=== PATIENT | female | born 1995 | race Caucasian/White ===

== ENCOUNTER → 2017-05-18 | Outpatient (CLI) | payer OTHER ==
[~2017-05-18] MED LIST: AMOX500C PO; HYDR-3713 PO; IBUP-1022 PO
--- NOTE | 2017-05-18 08:58 | REP ---
RIGHT UPPER QUADRANT ULTRASOUND: Real-time sonographic evaluation of the right upper quadrant performed. Gallbladder demonstrates no evidence of intraluminal sludge or calculi, wall thickening, or pericholecystic fluid. There is no intrahepatic or extrahepatic biliary dilatation, common bile duct measuring 5 mm in diameter. Liver and pancreas demonstrate homogenous echotexture with no gross mass. Right kidney demonstrates no hydronephrosis or nephrolithiasis with normal size at 10.5 cm in length. Visualized abdominal aorta is normal in caliber. IMPRESSION: Negative right upper quadrant ultrasound. Signed by Viet Guzmán MD 05/18/2017 09:03 A
== END ==
LOC: M RAD 08:17
PROVIDERS: ATTEND Family Medicine
DX: R10.11 Right upper quadrant pain (principal)

== ENCOUNTER → 2020-11-04 | Outpatient (REF) | payer OTHER | LOC: M LAB REF 16:56 | PROVIDERS: ATTEND Advanced Practice Midwife | DX: N39.0 Urinary tract infection, site not specified (principal) ==

== ENCOUNTER → 2020-11-12 | Outpatient (CLI) | payer OTHER ==
[2020-11-12 13:16] LABS: HEMATOCRIT 30.8 % (36.0-47.0); HEMOGLOBIN 10.3 g/dl (12.0-15.5); MEAN CORPUSCULAR HEMOGLOBIN 30.7 pg (27.0-33.0); MEAN CORPUSCULAR HGB CONC 33.4 g/dl (32.0-36.5); MEAN CORPUSCULAR VOLUME 91.7 fl (80.0-96.0); PLATELET COUNT, AUTOMATED 290 10^3/uL (150-450); RED BLOOD COUNT 3.36 10^6/uL (4.00-5.40); WHITE BLOOD COUNT 12.8 10^3/uL (4.0-10.0)
== END ==
LOC: M LAB 11:32
PROVIDERS: ATTEND Advanced Practice Midwife
DX: Z34.82 Encounter for supervision of other normal pregnancy, second trimester (principal); Z3A.00 Weeks of gestation of pregnancy not specified

== ENCOUNTER → 2020-11-18 | Outpatient (CLI) | payer OTHER | LOC: M LAB 07:07 | PROVIDERS: ATTEND Obstetrics & Gynecology | DX: Z34.82 Encounter for supervision of other normal pregnancy, second trimester (principal); R73.02 Impaired glucose tolerance (oral) ==

== ENCOUNTER → 2021-01-04 | Outpatient (REF) | payer OTHER | LOC: M LAB REF 17:43 | PROVIDERS: ATTEND Advanced Practice Midwife | DX: Z34.03 Encounter for supervision of normal first pregnancy, third trimester (principal) ==

== ENCOUNTER 2021-02-01 13:42 | Inpatient (IN) | payer OTHER ==
[~2021-02-01] VITALS: Ht 157.5 cm; Wt 77.4 kg
[2021-02-01] VITALS (27 sets, daily range): BP systolic 131–194; BP diastolic 74–119
[2021-02-01] MEDS ORDERED: MULTTAB20 PO (14:00)
[2021-02-01 15:17] LABS: HEMATOCRIT 31.5 % (36.0-47.0); HEMOGLOBIN 10.3 g/dl (12.0-15.5); MEAN CORPUSCULAR HGB CONC 32.7 g/dl (32.0-36.5); MEAN CORPUSCULAR VOLUME 88.7 fl (80.0-96.0); PLATELET COUNT, AUTOMATED 256 10^3/uL (150-450); RED BLOOD COUNT 3.55 10^6/uL (4.00-5.40); WHITE BLOOD COUNT 12.1 10^3/uL (4.0-10.0)
[2021-02-01 15:41] LABS: ALT/SGPT 19 U/L (12-78); BILIRUBIN,TOTAL 0.1 MG/DL (0.2-1.0); CREATININE FOR GFR 0.54 MG/DL (0.55-1.30); GLOMERULAR FILTRATION RATE > 60.0 (>60); LDH LACTATE DEHYDROGENASE 187 U/L (84-246); URIC ACID 4.8 MG/DL (2.6-6.0)
[2021-02-01 16:04] LABS: CREATININE,RANDOM URINE 22.1 MG/DL; TOTAL PROTEIN,RANDOM URINE 20.7 MG/DL (0.0-12.0)
--- NOTE | 2021-02-01 16:22 | HPEPDOC ---
Obstetrical History & Physical General Date of Admission Feb 01, 2021 at 14:29 History of Present Illness 26 yo G1 at 39 5/7 weeks by 11 week ultrasound (EDC=02/03/2021) presents from the office at [facility] with elevated blood pressures. She denies HUDDLESTON's or blurred vision. No pain. Information Provided By: Patient Age: 26 : 1 Term: 0 Pre-term: 0 Abortions: 0 Care Care: Good Care Dating Final EDC: Feb 03, 2021 Final EDC by: 1st trimester (US) Past Medical History Past Obstetrical History : Past Obstetrical History: Primgravida Past Medical History Medical History med hx: scoliosis surgical hx: tonsillectomy and adenoidectomy, wisdom tooth extraction Family History Significant Family History: No pertinent family hx Social History Marital Status: Family situation: Spouse/partner home Psychosocial History: No pertinent psych hx * Smoker: non-smoker Allergies Coded Allergies: No Known Allergies (Unverified , 09/22/16) Medications Scheduled Amoxicillin (Amoxicillin) 500 Mg Cap, 500 MG PO TID No122/Iron/Folic Acid ( Multi Tablet) 1 Each Tablet, 1 TAB PO DAILY Scheduled PRN Hydrocodone/Acetaminophen (Hydrocodone-Acetamin 5-325 mg) 1 Tab Tab, 1 TAB PO QIDP PRN for PAIN Ibuprofen (Ibuprofen) 600 Mg Tab, 600 MG PO QIDP PRN for PAIN Physical Examination Physical Examination GENERAL: Alert and oriented times three. BREAST: . ABDOMEN: Gravid and non-tender to touch. FETUS: Is vertex (VTX) by sterile vaginal examination (SVE), fetus is vertex (VTX) by Lalo. HEART RATE: Regular rate and rhythm. LUNGS: Clear to auscultation (CTA). EXTREMITIES: No edema. No clonus. Deep tendon reflexes (DTRs) + . Vital Signs/I&O Vital Signs Date Time Temp Pulse Resp B/P (MAP) Pulse Ox O2 Delivery O2 Flow Rate FiO2 02/01/21 15:29 87 151/105 (120) 02/01/21 13:58 98.4 18 Laboratory Data 24H LABS Laboratory Tests 2 02/01/21 14:43: Serology Scanned Report Hepatitis B Testing 02/01/21 14:54: Nucleated Red Blood Cells % (auto) 0.0, Urine Random Creatinine 22.1, Urine Random Total Protein 20.7H, Glomerular Filtration Rate > 60.0, Uric Acid 4.8, Total Bilirubin 0.1L, Aspartate Amino Transf (AST/SGOT) 19, Alanine Aminotransferase (ALT/SGPT) 19, Lactate Dehydrogenase 187, Syphilis Serology NONREACTIVE CBC/BMP Laboratory Tests 02/01/21 14:54 Pertinent Laboratoy Data Blood Type: O- Group B Streptococcus: Negative Vaginal Examination Dilation: None Effacement: 50% Station: -2 Cervical Consistency: Soft Cervical Position: Posterior Presentation: Cephalic presentation Assessment Variability: Moderate Accelerations: Positive Decelerations: None Tocometer Contractions: No Assessment/Plan Assessment Pt is a 26-year-old (G)1 para (P)0 at 39+5 weeks by 11-week ultrasound presents with preeclampsia. Plan Admit and orient. [employer] Supervisor and consent. Diet: regular. Group B Streptococcus (GBS) negative. Labs and intravenous (IV) per unit protocol. Manage blood pressures as indicated to keep in reasonable range discussed diagnosis of preeclampsia CHRISTOPH BOWEN MD Feb 01, 2021 16:22
[2021-02-01] MEDS ORDERED: LABETALOL 100MG/20ML VIAL IV STA ×2 (16:25→17:34)
[2021-02-01] MEDS: miSOPROStol 50MCG 1/2 TABLET SL SCH ×2 (16:34→20:31)
[2021-02-01] MEDS ORDERED: ACETAMINOPHEN 500 MG TAB PO ONE (22:30)
[2021-02-01] MEDS ORDERED: BUTORPHANOL 2 MG/ML INJ (J0595) IV ONE (23:00)
[2021-02-01] MEDS ORDERED: PROMETHAZINE INJ 25 MG/ML VIAL (J2550) IV ONE (23:00)
[2021-02-02] VITALS (23 sets, daily range): BP systolic 130–196; BP diastolic 75–109
[2021-02-02] MEDS: miSOPROStol 50MCG 1/2 TABLET SL SCH (00:31)
[2021-02-02] MEDS ORDERED: LR 1,000 ML IV ONE (01:55)
[2021-02-02] MEDS ORDERED: TERBUTALINE SULFATE 1 MG/ML VIAL (J3105) SC ONE (02:30)
[2021-02-02 06:37] LABS: HEMATOCRIT 33.4 % (36.0-47.0); HEMOGLOBIN 10.6 g/dl (12.0-15.5); MEAN CORPUSCULAR HEMOGLOBIN 28.8 pg (27.0-33.0); MEAN CORPUSCULAR HGB CONC 31.7 g/dl (32.0-36.5); MEAN CORPUSCULAR VOLUME 90.8 fl (80.0-96.0); PLATELET COUNT, AUTOMATED 240 10^3/uL (150-450); RED BLOOD COUNT 3.68 10^6/uL (4.00-5.40)
[2021-02-02] MEDS ORDERED: FENTANYL 2MCG/ML ROPIVACAINE 0.2% IN 0.9% NACL 100ML IVBAG As Ordered ONE (06:46)
[2021-02-02] MEDS ORDERED: OXYTOCIN DRIP 30 UNITS in IV 1 EA IV SCH ×2 (07:20→10:00)
[2021-02-02] MEDS ORDERED: LR 1,000 ML IV SCH (07:20)
[2021-02-02] MEDS ORDERED: EPIDURAL COMMENT XX SCH (08:40)
[2021-02-02] MEDS ORDERED: LACTATED RINGER'S 1000 ML IV PRN (08:40)
[2021-02-02] MEDS ORDERED: ONDANSETRON 4MG/2ML VIAL IV PRN ×2 (08:40→11:15)
[2021-02-02] MEDS ORDERED: REFRIGERATOR IV KEYS XX PRN (08:40)
[2021-02-02] MEDS ORDERED: NALOXONE INJ 0.4MG/1ML VIAL (J2310 PER 1MG) IV PRN (08:40)
[2021-02-02] MEDS ORDERED: diphenhydrAMINE 50MG/ML VIAL (J1200) IV PRN (08:40)
[2021-02-02] MEDS ORDERED: EPIDURAL/PCA KEYS XX PRN (08:40)
[2021-02-02] MEDS ORDERED: FENTANYL/ROPIVACAINE/NACL BAG 100 ML EPIDURAL SCH (08:40)
[2021-02-02] MEDS ORDERED: ePHEDrine SULFATE 25 MG/5 ML(5MG/ML) SYRINGE IV PRN (08:40)
[2021-02-02] MEDS ORDERED: AZITHROMYCIN INJ 500 MG, VIAL MATE ADAPTER 1 EACH in NS 250 ML IV ONE (09:30)
[2021-02-02] MEDS ORDERED: BICITRA 30ML SOLN UDC PO ONE (09:30)
[2021-02-02] MEDS ORDERED: ceFAZolin SOD 2 GM in IV 1 EA IV ONE (09:30)
[2021-02-02] MEDS ORDERED: KETOROLAC 60MG 2ML VIAL As Ordered ONE (09:39)
[2021-02-02] MEDS ORDERED: MORPHINE PRES-FREE INJ 10 MG/10 ML VIAL (J2274) As Ordered ONE (09:39)
[2021-02-02] MEDS ORDERED: ePHEDrine SULFATE 25 MG/5 ML(5MG/ML) SYRINGE As Ordered ONE (09:40)
[2021-02-02] MEDS ORDERED: dexameTHASONE 4 MG/ML 1ML VIAL (J1100 PER 1MG) As Ordered ONE (09:40)
[2021-02-02] MEDS ORDERED: BICITRA 30ML SOLN UDC As Ordered ONE (09:40)
[2021-02-02] MEDS ORDERED: ONDANSETRON 4MG/2ML VIAL As Ordered ONE (09:40)
[2021-02-02] MEDS ORDERED: OXYTOCIN INJ 10 UNITS/ML VIAL (J2590) As Ordered ONE (09:40)
[2021-02-02] MEDS ORDERED: ceFAZolin 2 GM/D5W 50 ML IV BAG (J0690 PER 500MG) As Ordered ONE (09:40)
[2021-02-02] MEDS ORDERED: PHENYLephrine 500MCG 5ML (100MCG/ML) SYRINGE As Ordered ONE (09:40)
[2021-02-02] MEDS ORDERED: AZITHROMYCIN INJ 500MG VIAL (J0456 PER 500MG) As Ordered ONE (09:41)
[2021-02-02] MEDS ORDERED: LIDOCAINE 2% W/EPINEPHRINE 20ML VIAL **PRES FREE As Ordered ONE (09:44)
[2021-02-02] MEDS ORDERED: OXYTOCIN 30 UNITS IN 0.9% NaCl 500ML IV BAG (J2590) As Ordered ONE (09:44)
[2021-02-02] MEDS ORDERED: SIMETHICONE 80MG CHEW TAB PO PRN (10:00)
[2021-02-02] MEDS ORDERED: MEASLES,MUMPS,RUBELLA VACCINE INJ (MMR-II) (90707) SC SCH (10:00)
[2021-02-02] MEDS ORDERED: MOM 30ML SUSPENSION UDC PO PRN (10:00)
[2021-02-02] MEDS ORDERED: RHOGAM 300 MCG (1500 IU) INJ (J2790) IM SCH (10:00)
[2021-02-02 10:34] LABS: CORD GAS HCO3 V 21.3 MEQ/L; CORD GAS O2 SAT V 45.4 %; CORD GAS PH V 7.221 UNITS; CORD GAS PO2 V 22.4 mmHg; CORD GAS SBC V 17.7 MEQ/L; CORD GAS TCO2 V 22.9 MEQ/L
[2021-02-02 10:36] LABS: CORD GAS ABE A -5.1; CORD GAS HCO3 A 24.2 MEQ/L; CORD GAS O2 SAT A 24.5 %; CORD GAS PCO2 A 63.4 mmHg; CORD GAS PH A 7.2 UNITS; CORD GAS PO2 A 17.2 mmHg; CORD GAS SBC A 18.6 MEQ/L; CORD GAS TCO2 A 26.2 MEQ/L
[2021-02-02] MEDS ORDERED: NALBUPHINE HCL 10 MG/ML AMP (J2300) IV PRN (11:15)
[2021-02-02] MEDS ORDERED: MEPERIDINE INJ 25 MG/ML VIAL (J2175) IV PRN (11:15)
[2021-02-02] MEDS ORDERED: fentaNYL 100 MCG/2 ML INJECTION (J3010) IV PRN (11:15)
[2021-02-02] MEDS ORDERED: oxyCODONE 5MG TAB PO PRN (11:15)
[2021-02-02] MEDS ORDERED: HYDROMORPHONE HCL 0.5 MG/ 0.5 ML SYRINGE (J1170 PER 1) IV PRN (11:15)
--- NOTE | 2021-02-02 14:01 | RO ---
OPERATIVE NOTE DATE OF OPERATION: 02/02/2021 Michelle is a 26-year-old female, who was admitted at 39 and 5 weeks gestation with preeclampsia. She had underwent an induction, had spontaneous rupture of membrane, but also found to have repetitive late deceleration, remote from delivery. She also had bradycardia for over 6 to 10 minutes. After consult, a decision was made to proceed with a delivery via section. PREOPERATIVE DIAGNOSIS: 1. Intrauterine at 39 and 5 weeks gestation. 2. Preeclampsia. 3. Non-reassuring heart rate tracing, bradycardia. POSTOPERATIVE DIAGNOSIS: 1. Intrauterine at 39 and 5 weeks gestation. 2. Preeclampsia. 3. Non-reassuring heart rate tracing, bradycardia. 4. Nuchal cord x2. PROCEDURE: Primary low transverse section. SURGEON: Lionel Han MD DIRECT CARE WORKER: Tati Hunt, ANESTHESIA: Epidural. COMPLICATIONS: None. ESTIMATED BLOOD LOSS: 500 ml. FINDINGS: Live male infant, occiput transverse position with nuchal cord x2, score 9 and 9. weight 5 pounds, 9 ounces. DESCRIPTION OF PROCEDURE: After obtaining informed consent, the patient was taken to the operating room where epidural anesthetic was found to be adequate. She then had a quick abdominal prep due to the bradycardia. We then made a Pfannenstiel incision with the help of Tati Hunt, my assistant professor of economics. This was carried down to the fascia. The fascia was incised in midline fashion. The peritoneum identified. The peritoneal cavity entered bluntly. Mobius skin retractor was placed. A low transverse uterine incision was made. The infant was delivered in atraumatic fashion. The nuchal cords were reduced. The cord doubly clipped and cut. Cord blood and cord gas were sent. The placenta removed manually. Questionable placental abruption noted. The uterus was then cleared of all clots and debris. The uterine incision was then repaired on two separate layers of 0 Vicryl sutures. Pelvis copiously irrigated with normal saline. Attention was turned to the peritoneum, which was closed in a running fashion using 2-0 Vicryl. Fascia closed in two separate segments of 0 Vicryl sutures. All superficial bleeds are coagulated and the skin was re- approximated in a subcuticular fashion using 3-0 Vicryl and a Raúl. Steri-Strip placed. The patient tolerated the procedure well. She was then transferred in the recovery room in stable condition. [facility]
[2021-02-02] MEDS: KETOROLAC 30 MG/ML 1ML VIAL IV SCH ×2 (17:01→22:56)
[2021-02-02] MEDS: DOCUSATE SODIUM 100MG CAPSULE PO SCH (20:22)
[2021-02-03] VITALS (7 sets, daily range): BP systolic 131–175; BP diastolic 89–96
[2021-02-03] MEDS: KETOROLAC 30 MG/ML 1ML VIAL IV SCH (05:01)
[2021-02-03 08:09] LABS: HEMATOCRIT 25.9 % (36.0-47.0); MEAN CORPUSCULAR HEMOGLOBIN 29.3 pg (27.0-33.0); MEAN CORPUSCULAR HGB CONC 31.7 g/dl (32.0-36.5); MEAN CORPUSCULAR VOLUME 92.5 fl (80.0-96.0); PLATELET COUNT, AUTOMATED 204 10^3/uL (150-450); WHITE BLOOD COUNT 22.4 10^3/uL (4.0-10.0)
[2021-02-03 08:12] LABS: HEMOGLOBIN 8.2 g/dl (12.0-15.5)
[2021-02-03] MEDS: PRENATAL VITAMINS CHEWABLE TABLET PO SCH (08:31)
[2021-02-03] MEDS: DOCUSATE SODIUM 100MG CAPSULE PO SCH ×2 (08:31→21:25)
[2021-02-03] MEDS: PERCOCET 5MG/325MG TAB PO PRN ×2 (08:32→18:56)
[2021-02-03] MEDS: IBUPROFEN 800 MG TAB PO SCH ×2 (12:54→21:26)
[2021-02-03 19:33] LABS: HEMATOCRIT 24.2 % (36.0-47.0); HEMOGLOBIN 7.6 g/dl (12.0-15.5); MEAN CORPUSCULAR HEMOGLOBIN 29.1 pg (27.0-33.0); MEAN CORPUSCULAR HGB CONC 31.4 g/dl (32.0-36.5); MEAN CORPUSCULAR VOLUME 92.7 fl (80.0-96.0); PLATELET COUNT, AUTOMATED 184 10^3/uL (150-450); RED BLOOD COUNT 2.61 10^6/uL (4.00-5.40); WHITE BLOOD COUNT 17.2 10^3/uL (4.0-10.0)
[2021-02-03 20:18] LABS: ALBUMIN 2.1 GM/DL (3.2-5.2); ALT/SGPT 21 U/L (12-78); BILIRUBIN,TOTAL 0.1 MG/DL (0.2-1.0); BLOOD UREA NITROGEN 12 MG/DL (7-18); CALCIUM LEVEL 8.3 MG/DL (8.5-10.1); CARBON DIOXIDE LEVEL 29 MEQ/L (21-32); CHLORIDE LEVEL 108 MEQ/L (98-107); CREATININE FOR GFR 0.63 MG/DL (0.55-1.30); GLOMERULAR FILTRATION RATE > 60.0 (>60); GLUCOSE, FASTING 108 MG/DL (70-100); POTASSIUM SERUM 3.8 MEQ/L (3.5-5.1); SODIUM LEVEL 142 MEQ/L (136-145); TOTAL PROTEIN 5.5 GM/DL (6.4-8.2)
[2021-02-03 20:19] LABS: CREATININE,RANDOM URINE < 13.0 MG/DL; TOTAL PROTEIN,RANDOM URINE < 5.0 MG/DL (0.0-12.0)
[2021-02-04] VITALS (9 sets, daily range): BP systolic 132–180; BP diastolic 78–99
[2021-02-04] MEDS: IBUPROFEN 800 MG TAB PO SCH ×3 (05:24→20:22)
[2021-02-04] MEDS: PRENATAL VITAMINS CHEWABLE TABLET PO SCH (07:51)
[2021-02-04] MEDS: NIFEdipine 30 MG XL TAB PO SCH (07:52)
[2021-02-04] MEDS: DOCUSATE SODIUM 100MG CAPSULE PO SCH ×2 (07:52→20:22)
--- NOTE | 2021-02-04 08:21 | IPNPDOC ---
Progress Note Date of Service: Feb 04, 2021 Day#: 2 Progress Note POD 2 SUBJECT: Adilene is a 26yo s/p uncomplicated PLTCS at 39w5d on 02/02 for NRFHT that developed during IOL for pre-eclampsia, doing well POD/ day # 2. BPs have been high mild range, pre-E labs were repeated last night and essentially stable. She denies HUDDLESTON/vision changes. She has been ambulating, void ing spontaneously without issue and tolerating regular diet. Bottle feeding without issue. OBJECTIVE: VITAL SIGNS: BPs mostly mild range, afebrile. Alert and oriented times three. Abdomen: Fundus firm at U-2. Soft, appropriately tender to palpation with no rebound/guarding. Pfannenstiel incision covered by dry/clean dressing. Extremities: no pain with palpation of calves Labs: pre-op: H/H 10.3/31.5 post-op: H/H 7.6/24.2 /15 creat 0.63, AST 41, ALT 21, plt 184 ASSESSMENT: Adilene is a 26yo s/p uncomplicated PLTCS at 39w5d on 02/02 for NRFHT that developed during IOL for pre-eclampsia, doing well POD/ day # 2. BPs have been high mild range, pre-E labs were repeated last night and essentially stable. No signs of worsening pre-E. Hemodynamically stable with no evidence of infection. PLAN: 1. Initiate Nifidipine 30mg qam to address high mild range bp's. Reassess later today for possibility of discharge based on bp's. If discharged, she will need f/u bp check in clinic Sunday 2. Percocet and Motrin for pain. 3. Encourage ambulation and use of IS 4. Regular diet Brenda Leyva MD VS, I&O, 24H, Rafiq Vital Signs/I&O Vital Signs Date Time Temp Pulse Resp B/P (MAP) Pulse Ox O2 Delivery O2 Flow Rate FiO2 02/04/21 07:52 160/90 02/04/21 06:00 97.8 101 18 100 Room Air I&O- Last 24 Hours up to 6 AM 02/04/21 06:00 Output Total 300 ml Balance -300 ml Laboratory Data 24H LABS Laboratory Tests 2 02/03/21 18:40: Urine Random Creatinine < 13.0, Urine Random Total Protein < 5.0 02/03/21 19:15: Nucleated Red Blood Cells % (auto) 0.0, Anion Gap 5L, Glomerular Filtration Rate > 60.0, Calcium Level 8.3L, Total Bilirubin 0.1L, Aspartate Amino Transf (AST/SGOT) 41H, Alanine Aminotransferase (ALT/SGPT) 21, Alkaline Phosphatase 138H, Total Protein 5.5L, Albumin 2.1L, Albumin/Globulin Ratio 0.6L CBC/BMP Laboratory Tests 02/03/21 19:15 Brenda Leyva MD Feb 04, 2021 08:21
[2021-02-04] MEDS: PERCOCET 5MG/325MG TAB PO PRN (10:39)
[2021-02-04] MEDS ORDERED: BOOSTRIX/ADACEL VACCINE (DIPHTH/PERTUSS/ACELL/TETANUS) 0.5ML SYR IM ONE (12:20)
[2021-02-04] MEDS ORDERED: LABETALOL 100MG TAB PO ONE (14:50)
[2021-02-04] MEDS: LABETALOL 200 MG TAB PO SCH (20:23)
[2021-02-05 02:00] VITALS: BP 125/79
[2021-02-05] MEDS: IBUPROFEN 800 MG TAB PO SCH (05:32)
[2021-02-05 06:32] VITALS: BP 131/85
[2021-02-05] MEDS ORDERED: PERCOCET PO (07:45)
[2021-02-05] MEDS ORDERED: IBUP80TA PO (07:45)
[2021-02-05] MEDS ORDERED: LABE20TAB PO (07:45)
[2021-02-05] MEDS ORDERED: NIFE1TAB52 PO (07:45)
--- NOTE | 2021-02-05 07:53 | DS.PDOC ---
Discharge Summary General Date of Admission Feb 01, 2021 at 14:29 Date of Discharge February 05, 2021 Discharge Summary PROCEDURES PERFORMED DURING STAY: Primary section ADMITTING DIAGNOSES: 1. Severe preeclampsia for induction DISCHARGE DIAGNOSES: 1. Preeclampsia 2. Primary section COMPLICATIONS/CHIEF COMPLAINT: Preclampsia. HISTORY OF PRESENT ILLNESS: Ms Bolden was admitted February 01 for induction of labor due to preeclampsia. A primary section was performed on for nonreassuring status. HOSPITAL COURSE: Adequate pain management. Tolerating diet. Out of bed independently. Voiding and passing flatus. Blood pressures are controlled with nifedipine and labetalol DISCHARGE MEDICATIONS: Please see below. ALLERGIES: Please see below. PHYSICAL EXAMINATION ON DISCHARGE: VITAL SIGNS: Please see below. GENERAL: No distress HEENT: WNL NECK: Supple CARDIOVASCULAR EXAMINATION: HRR, normotensive with medication RESPIRATORY EXAMINATION: Clear and unlabored ABDOMINAL EXAMINATION: Fundus firm, steri strips intact. Wound well approximated without evidence infection EXTREMITIES: Equal strength and motion SKIN: Intact NEUROLOGICAL EXAMINATION: Grossly intact PSYCHIATRIC EXAMINATION: Appropriate LABORATORY DATA: Please see below. PROGNOSIS: Good ACTIVITY: As tolerated. DIET: As tolerated DISCHARGE PLAN: Home today. DISPOSITION: Home with family DISCHARGE INSTRUCTIONS: 1. Pelvic rest. Nothing in vagina for 6 wks. Continue PNV and antihypertensive medications as ordered. Pain medications as needed. Call with fever, nausea, vomiting, chills, wound exudate, foul lochia, sudden severe headaches, visual disturbances or chest pain. RTO 2 wks and 6 wks DISCHARGE CONDITION: Stable TIME SPENT ON DISCHARGE: Greater than 10 minutes. Vital Signs/I&Os Vital Signs Date Time Temp Pulse Resp B/P (MAP) Pulse Ox O2 Delivery O2 Flow Rate FiO2 02/05/21 06:32 97.7 104 18 131/85 (100) 98 02/05/21 02:00 Room Air Discharge Medications Scheduled Ibuprofen (Ibuprofen) 800 Mg Tablet, 800 MG PO Q8H Labetalol HCl (Labetalol HCl) 200 Mg Tablet, 200 MG PO BID Nifedipine (Nifedipine ER) 30 Mg Tab.er.24, 30 MG PO QAM No122/Iron/Folic Acid ( Multi Tablet) 1 Each Tablet, 1 TAB PO DAILY, (Reported) Scheduled PRN Oxycodone/Acetaminophen (Oxycodone-Acetaminophen 5-325) 1 Each Tablet, 1 TAB PO Q4H PRN for MILD/MODERATE PAIN (PS 1-7) Allergies Coded Allergies: No Known Allergies (Unverified , 09/22/16) Aline Green CNM Feb 05, 2021 07:53
[2021-02-05] MEDS: DOCUSATE SODIUM 100MG CAPSULE PO SCH (08:59)
[2021-02-05] MEDS: PRENATAL VITAMINS CHEWABLE TABLET PO SCH (08:59)
[2021-02-05 09:00] VITALS: BP 149/85
[2021-02-05] MEDS: LABETALOL 200 MG TAB PO SCH (09:00)
[2021-02-05] MEDS: NIFEdipine 30 MG XL TAB PO SCH (09:01)
== END 2021-02-05 09:35 | disposition home or self-care (01) | DRG 540 ==
LOC: M LDO 13:42 → M LDI 14:29 → M OBS 02-02 12:57
PROVIDERS: ADMIT Specialist; ATTEND Specialist
PROC: 10D00Z1 Extraction of Products of Conception, Low, Open Approach (ICD-10-PCS; principal; 2021-02-02)
DX: O14.14 Severe pre-eclampsia complicating childbirth (principal); O76 Abnormality in fetal heart rate and rhythm complicating labor and delivery; Z37.0 Single live birth; Z3A.39 39 weeks gestation of pregnancy

== ENCOUNTER → 2022-05-24 | Outpatient (CLI) | payer OTHER ==
[~2022-05-24] MED LIST changes: +IBUP80TA PO; +LABE20TAB PO; +MULTTAB20 PO; +NIFE1TAB52 PO; +PERCOCET PO
== END ==
LOC: M PLAIMG 08:45
PROVIDERS: ATTEND Nurse Practitioner Women's Health
DX: Z15.01 Genetic susceptibility to malignant neoplasm of breast (principal); Z80.3 Family history of malignant neoplasm of breast

== ENCOUNTER 2023-04-19 17:19 | Emergency (ER) | payer OTHER ==
[~2023-04-19] VITALS: Ht 157.5 cm; Wt 60.3 kg
[2023-04-19] MEDS ORDERED: DULO1CAP5 PO (17:27)
[2023-04-19 18:22] LABS: BASO # 0.1 10^3/uL (0.0-0.2); BASO % 0.4 % (0.0-1.0); HEMATOCRIT 38.1 % (36.0-47.0); LYMPH # 1.6 10^3/uL (1.5-5.0); LYMPH % 11.7 % (24.0-44.0); MEAN CORPUSCULAR HEMOGLOBIN 28.4 pg (27.0-33.0); MEAN CORPUSCULAR HGB CONC 34.1 g/dl (32.0-36.5); MEAN CORPUSCULAR VOLUME 83.2 fl (80.0-96.0); MONO % 7.5 % (2.0-8.0); NEUTROPHILS # 11.1 10^3/uL (1.5-8.5); NEUTROPHILS % 80.2 % (36.0-66.0); PLATELET COUNT, AUTOMATED 354 10^3/uL (150-450); RED BLOOD COUNT 4.58 10^6/uL (4.00-5.40); WHITE BLOOD COUNT 13.8 10^3/uL (4.0-10.0)
[2023-04-19 18:48] LABS: BLOOD UREA NITROGEN 11 MG/DL (9-23); CARBON DIOXIDE LEVEL 26 MMOL/L (20-31); CHLORIDE LEVEL 100 MMOL/L (98-107); CREATININE FOR GFR 0.61 MG/DL (0.55-1.30); GLOMERULAR FILTRATION RATE > 60.0 (>60); GLUCOSE, FASTING 99 MG/DL (60-100); POTASSIUM SERUM 3.3 MMOL/L (3.5-5.1); SODIUM LEVEL 134 MMOL/L (136-145)
[2023-04-19 19:15] LABS: HCG, SERUM QUANTITATIVE 50109.6 MIU/ML (<4.2)
[2023-04-19] MEDS ORDERED: NS 1,000 ML IV ONE (20:15)
[2023-04-19] MEDS ORDERED: METOCLOPRAMIDE INJ 10MG/2ML VIAL IV ONE (20:15)
[2023-04-19] MEDS ORDERED: REGL10TA6 PO (21:13)
[2023-04-19] MEDS ORDERED: ONDA4TAB6 PO (21:13)
[2023-04-19 22:56] VITALS: BP 160/88; TEMP 98.8; O2SAT 99
== END 2023-04-19 22:57 | disposition home or self-care (01) ==
LOC: M ED 17:19
DX: O21.9 Vomiting of pregnancy, unspecified (principal); I10 Essential (primary) hypertension; Z3A.08 8 weeks gestation of pregnancy; Z79.83 Long term (current) use of bisphosphonates; Z79.899 Other long term (current) drug therapy
CPT/HCPCS: 76801; 80048; 81001; 84702; 85025; 86850; 86900; 86901; 87086; 96374; 99284; J2765

== ENCOUNTER 2023-05-20 17:51 | Day surgery (SDC) | payer OTHER ==
[~2023-05-20] VITALS: Ht 157.5 cm; Wt 53.3 kg
[~2023-05-20 17:51] MED LIST changes: +DULO1CAP5 PO; +ONDA4TAB6 PO; +REGL10TA6 PO
[2023-05-20] MEDS ORDERED: NS 1,000 ML IV ONE (19:55)
[2023-05-20] MEDS ORDERED: ONDANSETRON 4MG 2ML VIAL IV ONE (20:00)
[2023-05-20] MEDS ORDERED: MORPHINE 4 MG/ML 1ML VIAL IV ONE (20:00)
[2023-05-20 20:19] LABS: BASO # 0.1 10^3/uL (0.0-0.2); BASO % 0.5 % (0.0-1.0); EOS % 0.2 % (0.0-3.0); HEMATOCRIT 35.6 % (36.0-47.0); LYMPH % 14.5 % (24.0-44.0); MEAN CORPUSCULAR HEMOGLOBIN 28.5 pg (27.0-33.0); MEAN CORPUSCULAR HGB CONC 33.7 g/dl (32.0-36.5); MEAN CORPUSCULAR VOLUME 84.6 fl (80.0-96.0); MONO # 0.8 10^3/uL (0.0-0.8); NEUTROPHILS # 10.6 10^3/uL (1.5-8.5); NEUTROPHILS % 78.4 % (36.0-66.0); PLATELET COUNT, AUTOMATED 324 10^3/uL (150-450); RED BLOOD COUNT 4.21 10^6/uL (4.00-5.40); WHITE BLOOD COUNT 13.6 10^3/uL (4.0-10.0)
[2023-05-20 20:34] LABS: INR 0.97; PROTHROMBIN TIME 13.1 SECONDS (12.5-14.5)
[2023-05-20 20:35] LABS: PARTIAL THROMBOPLASTIN TIME 26.9 SECONDS (24.8-34.2)
[2023-05-20 20:41] LABS: BLOOD UREA NITROGEN 6 MG/DL (9-23); CALCIUM LEVEL 9.5 MG/DL (8.5-10.1); CARBON DIOXIDE LEVEL 20 MMOL/L (20-31); CHLORIDE LEVEL 105 MMOL/L (98-107); CREATININE FOR GFR 0.57 MG/DL (0.55-1.30); GLOMERULAR FILTRATION RATE > 60.0 (>60); GLUCOSE, FASTING 103 MG/DL (60-100); POTASSIUM SERUM 3.4 MMOL/L (3.5-5.1); SODIUM LEVEL 140 MMOL/L (136-145)
[2023-05-20 20:57] LABS: HCG, SERUM QUANTITATIVE 2449.4 MIU/ML (<4.2)
[2023-05-20] MEDS ORDERED: NS 1,000 ML IV SCH ×2 (21:10→22:35)
[2023-05-20] MEDS ORDERED: RHOGAM 300MCG (1500IU) INJ IM ONE (21:20)
[2023-05-20] MEDS ORDERED: HOME MED LIST COMPLETE! XX SCH (23:00)
[2023-05-20] MEDS ORDERED: KETOROLAC 60MG 2ML VIAL As Ordered ONE (23:58)
[2023-05-20] MEDS ORDERED: MIDAZOLAM INJ 2MG/2ML VIAL As Ordered ONE (23:58)
[2023-05-20] MEDS ORDERED: LIDOCAINE 2% 100MG/5ML SDV (FOR ANES.) As Ordered ONE (23:58)
[2023-05-20] MEDS ORDERED: ONDANSETRON 4MG 2ML VIAL As Ordered ONE (23:58)
[2023-05-20] MEDS ORDERED: fentaNYL 100 MCG/2 ML INJECTION As Ordered ONE (23:58)
[2023-05-20] MEDS ORDERED: propofoL 200 MG/20 ML VIAL As Ordered ONE (23:58)
[2023-05-21] MEDS ORDERED: DOXYCYCLINE HYCLATE 100MG/10ML VIAL As Ordered ONE (00:05)
[2023-05-21] MEDS ORDERED: METHYLERGONOVINE MALEATE 0.2MG/ML 1ML VIAL As Ordered ONE (00:13)
[2023-05-21] MEDS ORDERED: IBUP80TA PO (00:24)
[2023-05-21] MEDS ORDERED: LR 1,000 ML IV SCH (00:40)
[2023-05-21 01:07] VITALS: BP 128/82; TEMP 97.7; O2SAT 99
== END 2023-05-21 01:07 | disposition home or self-care (01) ==
LOC: M ED 17:51 → M SDC 22:30
PROVIDERS: ATTEND Obstetrics & Gynecology
DX: O02.1 Missed abortion (principal); F41.9 Anxiety disorder, unspecified
CPT/HCPCS: 59820; 76801; 80048; 84702; 85025; 85610; 85730; 86850; 86900; 86901; 87635; 88305; 93041; 96372; 96374; 96375; 99285; J1100; J1885; J2210; J2250; J2405; J3010

== ENCOUNTER 2023-09-09 12:13 | Emergency (ER) | payer OTHER ==
[~2023-09-09] VITALS: Ht 157.5 cm; Wt 60.0 kg
[2023-09-09] MEDS ORDERED: DULO1CAP5 (12:17)
[2023-09-09] MEDS ORDERED: PROMETHAZINE 25MG/ML 1ML VIAL IV ONE (12:50)
[2023-09-09] MEDS ORDERED: NS 1,000 ML IV ONE (12:50)
[2023-09-09 13:00] LABS: BASO # 0.1 10^3/uL (0.0-0.2); BASO % 0.5 % (0.0-1.0); EOS % 0.1 % (0.0-3.0); HEMATOCRIT 34.5 % (36.0-47.0); HEMOGLOBIN 11.1 g/dl (12.0-15.5); LYMPH % 16.6 % (24.0-44.0); MEAN CORPUSCULAR HEMOGLOBIN 23.8 pg (27.0-33.0); MEAN CORPUSCULAR HGB CONC 32.2 g/dl (32.0-36.5); MONO # 0.9 10^3/uL (0.0-0.8); MONO % 7.5 % (2.0-8.0); NEUTROPHILS # 9.3 10^3/uL (1.5-8.5); NEUTROPHILS % 75.1 % (36.0-66.0); PLATELET COUNT, AUTOMATED 384 10^3/uL (150-450); RED BLOOD COUNT 4.66 10^6/uL (4.00-5.40); WHITE BLOOD COUNT 12.3 10^3/uL (4.0-10.0)
[2023-09-09 13:25] LABS: ALBUMIN 4.2 G/DL (3.2-5.2); BILIRUBIN,DIRECT 0.2 MG/DL (<0.4); BILIRUBIN,TOTAL 0.6 MG/DL (0.3-1.2)
[2023-09-09] MEDS ORDERED: POTASSIUM CHLORIDE 10MEQ SR TABLET PO ONE (14:25)
[2023-09-09] MEDS ORDERED: PROM12.54 PR (14:57)
[2023-09-09 15:22] VITALS: BP 138/75; TEMP 98.5; O2SAT 100
== END 2023-09-09 15:24 | disposition home or self-care (01) ==
LOC: M ED 12:13
DX: O21.0 Mild hyperemesis gravidarum (principal); O13.9 Gestational [pregnancy-induced] hypertension without significant proteinuria, unspecified trimester
CPT/HCPCS: 80047; 80076; 81001; 83690; 84702; 85025; 96361; 96374; 99284; J2550

== ENCOUNTER 2023-09-10 02:56 | Emergency (ER) | payer OTHER ==
[~2023-09-10] VITALS: Ht 157.5 cm; Wt 62.8 kg
[~2023-09-10 02:56] MED LIST changes: +DULO1CAP5; +PROM12.54 PR
[2023-09-10] MEDS ORDERED: NS 1,000 ML IV ONE ×2 (04:00→05:50)
[2023-09-10] MEDS ORDERED: PROMETHAZINE 25MG/ML 1ML VIAL IV ONE (04:30)
[2023-09-10 04:36] LABS: BASO % 0.3 % (0.0-1.0); EOS % 0.1 % (0.0-3.0); HEMATOCRIT 31.2 % (36.0-47.0); LYMPH # 1.8 10^3/uL (1.5-5.0); LYMPH % 14.3 % (24.0-44.0); MEAN CORPUSCULAR HGB CONC 32.1 g/dl (32.0-36.5); MEAN CORPUSCULAR VOLUME 74.8 fl (80.0-96.0); MONO # 0.8 10^3/uL (0.0-0.8); MONO % 6.4 % (2.0-8.0); NEUTROPHILS # 9.9 10^3/uL (1.5-8.5); NEUTROPHILS % 78.7 % (36.0-66.0); PLATELET COUNT, AUTOMATED 352 10^3/uL (150-450); RED BLOOD COUNT 4.17 10^6/uL (4.00-5.40); WHITE BLOOD COUNT 12.5 10^3/uL (4.0-10.0)
[2023-09-10 05:03] LABS: LIPASE 30 U/L (12-53)
[2023-09-10 05:09] LABS: ALBUMIN 3.9 G/DL (3.2-5.2); ALKALINE PHOSPHATASE 58 U/L (46-116); ALT/SGPT 37 U/L (7.0-40); AST/SGOT 27 U/L (<34); BILIRUBIN,DIRECT 0.2 MG/DL (<0.4); BILIRUBIN,TOTAL 0.5 MG/DL (0.3-1.2); BLOOD UREA NITROGEN 8 MG/DL (9-23); CALCIUM LEVEL 9.4 MG/DL (8.5-10.1); CARBON DIOXIDE LEVEL 22 MMOL/L (20-31); CHLORIDE LEVEL 105 MMOL/L (98-107); CREATININE FOR GFR 0.57 MG/DL (0.55-1.30); GLOMERULAR FILTRATION RATE > 60.0 (>60); GLUCOSE, FASTING 105 MG/DL (60-100); POTASSIUM SERUM 3.5 MMOL/L (3.5-5.1); SODIUM LEVEL 138 MMOL/L (136-145); TOTAL PROTEIN 7.4 G/DL (5.7-8.2)
[2023-09-10] MEDS ORDERED: PANTOPRAZOLE 40MG VIAL IV ONE (05:50)
[2023-09-10] MEDS ORDERED: MAALOX 30 ML SUSP *UDC PO ONE (06:05)
[2023-09-10] MEDS ORDERED: ONDANSETRON 4MG ORAL DISINTEGRATING TAB PO ONE (07:55)
[2023-09-10] MEDS ORDERED: METOCLOPRAMIDE 10MG TAB PO ONE (09:15)
[2023-09-10 10:10] VITALS: BP 147/77; TEMP 97.6; O2SAT 100
== END 2023-09-10 10:23 | disposition home or self-care (01) ==
LOC: M ED 02:56
DX: O21.0 Mild hyperemesis gravidarum (principal)
CPT/HCPCS: 76801; 80048; 80076; 83690; 85025; 86850; 86900; 86901; 93041; 93976; 96361; 96374; 96375; 99284; C9113; J2550

== ENCOUNTER → 2023-09-19 | Outpatient (REF) | payer OTHER | LOC: M PLALAB 10:35 | PROVIDERS: ATTEND Advanced Practice Midwife | DX: Z53.9 Procedure and treatment not carried out, unspecified reason (principal) ==

== ENCOUNTER → 2023-09-26 | Outpatient (CLI) | payer OTHER ==
[2023-09-26 14:15] LABS: HEMATOCRIT 33.5 % (36.0-47.0); HEMOGLOBIN 10.6 g/dl (12.0-15.5); MEAN CORPUSCULAR HEMOGLOBIN 24.7 pg (27.0-33.0); MEAN CORPUSCULAR HGB CONC 31.6 g/dl (32.0-36.5); MEAN CORPUSCULAR VOLUME 77.9 fl (80.0-96.0); PLATELET COUNT, AUTOMATED 370 10^3/uL (150-450); WHITE BLOOD COUNT 9.2 10^3/uL (4.0-10.0)
[2023-09-26 14:34] LABS: TOTAL PROTEIN,RANDOM URINE 29.2 MG/DL (0.0-14.0)
[2023-09-26 14:37] LABS: URIC ACID 3.8 MG/DL (3.1-7.8)
[2023-09-26 14:39] LABS: CREATININE,RANDOM URINE 172.3 MG/DL
[2023-09-26 14:40] LABS: ALT/SGPT 15 U/L (7.0-40); AST/SGOT 13 U/L (<34); BILIRUBIN,TOTAL 0.4 MG/DL (0.3-1.2); CREATININE FOR GFR 0.48 MG/DL (0.55-1.30); GLOMERULAR FILTRATION RATE > 60.0 (>60); LDH LACTATE DEHYDROGENASE 130 U/L (120-246)
[2023-09-26 15:07] LABS: CHLAMYDIA DNA AMPLIFICATION NEGATIVE (NEGATIVE); GC DNA AMPLIFICATION NEGATIVE (NEGATIVE)
[2023-09-26 15:08] LABS: HIV 1&2 SCREEN NEGATIVE (NEGATIVE)
== END ==
LOC: M PLALAB 11:00
PROVIDERS: ATTEND Advanced Practice Midwife
DX: Z34.81 Encounter for supervision of other normal pregnancy, first trimester (principal)

== ENCOUNTER → 2023-11-28 | Outpatient (CLI) | payer OTHER | LOC: M WHC 13:23 | PROVIDERS: ATTEND Advanced Practice Midwife | DX: O32.1XX0 Maternal care for breech presentation, not applicable or unspecified (principal); Z3A.20 20 weeks gestation of pregnancy ==

== ENCOUNTER 2024-01-01 11:55 | Emergency (ER) | payer OTHER ==
[~2024-01-01] VITALS: Ht 157.5 cm; Wt 63.3 kg
[2024-01-01] MEDS ORDERED: PREN1CHW6 PO (12:04)
[2024-01-01 14:14] VITALS: BP 136/78
[2024-01-01] MEDS: OSELTAMIVIR PHOSPHATE 75 MG CAP (TAMIFLU) PO STA (14:22)
[2024-01-01] MEDS ORDERED: OSEL75CA PO (14:30)
[2024-01-01 14:36] VITALS: TEMP 98.9; O2SAT 100
== END 2024-01-01 14:37 | disposition home or self-care (01) ==
LOC: M ED 11:55
DX: J09.X2 Influenza due to identified novel influenza A virus with other respiratory manifestations (principal); R03.0 Elevated blood-pressure reading, without diagnosis of hypertension; Z79.810 Long term (current) use of selective estrogen receptor modulators (SERMs); Z79.83 Long term (current) use of bisphosphonates

== ENCOUNTER → 2024-01-30 | Outpatient (CLI) | payer OTHER ==
[~2024-01-30] MED LIST changes: +OSEL75CA PO; +PREN1CHW6 PO
== END ==
LOC: M WHC 14:14
PROVIDERS: ATTEND Obstetrics & Gynecology
DX: Z36.2 Encounter for other antenatal screening follow-up (principal); Z3A.29 29 weeks gestation of pregnancy

== ENCOUNTER → 2024-02-06 | Outpatient (CLI) | payer OTHER ==
[2024-02-06 13:47] LABS: HEMATOCRIT 25.8 % (36.0-47.0); MEAN CORPUSCULAR HEMOGLOBIN 24.7 pg (27.0-33.0); MEAN CORPUSCULAR VOLUME 79.6 fl (80.0-96.0); PLATELET COUNT, AUTOMATED 293 10^3/uL (150-450); RED BLOOD COUNT 3.24 10^6/uL (4.00-5.40)
== END ==
LOC: M PLALAB 09:34
PROVIDERS: ATTEND Obstetrics & Gynecology
DX: Z34.92 Encounter for supervision of normal pregnancy, unspecified, second trimester (principal)
CPT/HCPCS: 82950; 85027; 86850; 86900; 86901; J2790

== ENCOUNTER 2024-02-18 06:52 | Outpatient (CLI) | payer OTHER ==
[2024-02-18] VITALS (8 sets, daily range): BP systolic 107–160; BP diastolic 54–93; O2SAT 95–100
[~2024-02-18] VITALS: Ht 157.5 cm; Wt 68.0 kg
[2024-02-18] MEDS: IRON SUCROSE 500 MG in NS 250 ML OVER 4 HRS IV ONE (07:32)
== END 2024-02-18 11:40 ==
LOC: M INFU 06:52
PROVIDERS: ATTEND Advanced Practice Midwife
DX: D64.9 Anemia, unspecified (principal)
CPT/HCPCS: 96365; 96366; J1756

== ENCOUNTER → 2024-02-20 | Outpatient (CLI) | payer OTHER ==
[2024-02-20 16:07] LABS: HEMATOCRIT 25.5 % (36.0-47.0); HEMOGLOBIN 7.7 g/dl (12.0-15.5); MEAN CORPUSCULAR HEMOGLOBIN 23.6 pg (27.0-33.0); MEAN CORPUSCULAR HGB CONC 30.2 g/dl (32.0-36.5); MEAN CORPUSCULAR VOLUME 78.2 fl (80.0-96.0); PLATELET COUNT, AUTOMATED 341 10^3/uL (150-450); RED BLOOD COUNT 3.26 10^6/uL (4.00-5.40); WHITE BLOOD COUNT 13.9 10^3/uL (4.0-10.0)
== END ==
LOC: M PLALAB 11:46
PROVIDERS: ATTEND Obstetrics & Gynecology
DX: O99.013 Anemia complicating pregnancy, third trimester (principal)

== ENCOUNTER → 2024-03-21 | Outpatient (REF) | payer OTHER | LOC: M SFHCWAGY 15:02 | PROVIDERS: ATTEND Specialist | DX: Z36.85 Encounter for antenatal screening for Streptococcus B (principal) ==

== ENCOUNTER → 2024-03-28 | Outpatient (CLI) | payer OTHER ==
[~2024-03-28] MED LIST changes: +ONDA-282 PO; -ONDA4TAB6 PO
[2024-03-28 14:40] LABS: HEMATOCRIT 31.7 % (36.0-47.0); HEMOGLOBIN 9.8 g/dl (12.0-15.5); MEAN CORPUSCULAR HGB CONC 30.9 g/dl (32.0-36.5); MEAN CORPUSCULAR VOLUME 84.1 fl (80.0-96.0); PLATELET COUNT, AUTOMATED 264 10^3/uL (150-450); RED BLOOD COUNT 3.77 10^6/uL (4.00-5.40); WHITE BLOOD COUNT 11.9 10^3/uL (4.0-10.0)
== END ==
LOC: M PLALAB 10:35
PROVIDERS: ATTEND Obstetrics & Gynecology
DX: O99.013 Anemia complicating pregnancy, third trimester (principal)

== ENCOUNTER 2024-04-09 05:26 | Inpatient (IN) | payer OTHER ==
[2024-04-09] VITALS (11 sets, daily range): BP systolic 133–141; BP diastolic 76–100; TEMP 97.9; O2SAT 97–100
[~2024-04-09] VITALS: Ht 157.5 cm; Wt 70.7 kg
[2024-04-09] MEDS ORDERED: IRON65TA2 PO (05:49)
[2024-04-09] MEDS ORDERED: HOME MED LIST COMPLETE! XX SCH (05:50)
[2024-04-09] MEDS: LACTATED RINGER'S 1000 ML IV STA (06:14)
[2024-04-09 06:29] LABS: HEMATOCRIT 29.7 % (36.0-47.0); HEMOGLOBIN 9.7 g/dl (12.0-15.5); MEAN CORPUSCULAR HEMOGLOBIN 26.8 pg (27.0-33.0); MEAN CORPUSCULAR HGB CONC 32.7 g/dl (32.0-36.5); PLATELET COUNT, AUTOMATED 271 10^3/uL (150-450); RED BLOOD COUNT 3.62 10^6/uL (4.00-5.40); WHITE BLOOD COUNT 11.5 10^3/uL (4.0-10.0)
[2024-04-09] MEDS: ceFAZolin SOD 2 GM in IV 1 EA IV ONE (07:07)
[2024-04-09] MEDS: LR 1,000 ML IV SCH ×2 (07:08→09:57)
[2024-04-09] MEDS: BICITRA 30ML SOLN UDC PO ONE (07:08)
[2024-04-09 07:26] LABS: HEPATITIS C VIRUS ABY INDEX 0.04 INDEX (<0.8)
[2024-04-09] MEDS ORDERED: MORPHINE PRES-FREE INJ 10 MG/10 ML VIAL As Ordered ONE (07:27)
[2024-04-09] MEDS ORDERED: fentaNYL 100 MCG/2 ML INJECTION As Ordered ONE (07:27)
[2024-04-09] MEDS ORDERED: ACETAMINOPHEN 1000MG 100ML IV BAG As Ordered ONE (07:30)
[2024-04-09] MEDS ORDERED: KETOROLAC 60MG 2ML VIAL As Ordered ONE (07:30)
[2024-04-09] MEDS ORDERED: MORPHINE 4 MG/ML 1ML VIAL IV PRN (09:20)
[2024-04-09] MEDS ORDERED: ANUSOL HC CREAM 30GM TOP PRN (09:20)
[2024-04-09] MEDS ORDERED: METHYLERGONOVINE MALEATE 0.2MG/ML 1ML VIAL IM PRN (09:20)
[2024-04-09] MEDS ORDERED: CALCIUM CARBONATE 500 MG CHEW U/D PO PRN (09:20)
[2024-04-09] MEDS ORDERED: PERCOCET PO (09:26)
[2024-04-09] MEDS ORDERED: IBUP80TA PO (09:26)
[2024-04-09] MEDS ORDERED: COLA100C5 PO (09:26)
[2024-04-09] MEDS: OXYTOCIN DRIP 30 UNITS in IV 1 EA IV SCH (09:57)
[2024-04-09] MEDS: KETOROLAC 30 MG/ML 1ML VIAL IV SCH (14:29)
[2024-04-09] MEDS: SIMETHICONE 80MG CHEW TAB PO PRN (19:31)
[2024-04-09] MEDS: PERCOCET 5MG/325MG TAB PO PRN (19:32)
[2024-04-09] MEDS: DOCUSATE SODIUM 100MG CAPSULE PO SCH (21:00)
[2024-04-10 02:00] VITALS: BP 117/65; O2SAT 100
[2024-04-10 05:48] VITALS: BP 122/68; O2SAT 99
[2024-04-10 06:16] LABS: HEMATOCRIT 23.7 % (36.0-47.0); MEAN CORPUSCULAR HEMOGLOBIN 26.8 pg (27.0-33.0); MEAN CORPUSCULAR HGB CONC 32.1 g/dl (32.0-36.5); MEAN CORPUSCULAR VOLUME 83.5 fl (80.0-96.0); PLATELET COUNT, AUTOMATED 181 10^3/uL (150-450); RED BLOOD COUNT 2.84 10^6/uL (4.00-5.40); WHITE BLOOD COUNT 11.1 10^3/uL (4.0-10.0)
[2024-04-10 06:17] LABS: HEMOGLOBIN 7.6 g/dl (12.0-15.5)
[2024-04-10] MEDS: PRENATAL VITAMINS CHEWABLE TABLET PO SCH (09:27)
[2024-04-10] MEDS: PERCOCET 5MG/325MG TAB PO PRN (09:28)
[2024-04-10] MEDS: FERROUS SULFATE 325MG TAB PO SCH (09:29)
[2024-04-10 10:00] VITALS: BP 120/79; O2SAT 100
[2024-04-10] MEDS: IBUPROFEN 800 MG TAB PO SCH (11:42)
[2024-04-10 14:00] VITALS: BP 134/84; O2SAT 98
[2024-04-10 18:00] VITALS: BP 139/82; O2SAT 100
[2024-04-10 22:00] VITALS: BP 138/73; O2SAT 99
[2024-04-11 02:00] VITALS: BP 121/76; O2SAT 97
[2024-04-11 06:00] VITALS: BP 134/83; O2SAT 98
[2024-04-11] MEDS: MEASLES,MUMPS,RUBELLA VACCINE INJ (MMR-II) SC.IMMUN ONE (09:00)
[2024-04-11 10:00] VITALS: BP 135/86; O2SAT 100
[2024-04-11] MEDS: RHO(D) IMMUNE GLOBULIN/MALTOSE 500MCG(2500IU)/2.2ML VIAL (WINRHO) IM SCH (12:32)
== END 2024-04-11 13:48 | disposition home or self-care (01) | DRG 540 ==
LOC: M LDI 05:26 → M OBS 10:50
PROVIDERS: ADMIT Obstetrics & Gynecology; ATTEND Obstetrics & Gynecology
PROC: 0UB70ZZ Excision of Bilateral Fallopian Tubes, Open Approach (ICD-10-PCS; 2024-04-09)
PROC: 10D00Z1 Extraction of Products of Conception, Low, Open Approach (ICD-10-PCS; principal; 2024-04-09 07:30)
DX: O34.211 Maternal care for low transverse scar from previous cesarean delivery (principal); Z30.2 Encounter for sterilization; Z37.0 Single live birth; Z3A.39 39 weeks gestation of pregnancy

== ENCOUNTER → 2025-06-29 | Outpatient (REF) | payer OTHER, MEDICAID ==
[~2025-06-29] MED LIST changes: +COLA100C5 PO; -IBUP-1022 PO; +IBUP600T42 PO; +IRON65TA2 PO
== END ==
LOC: M SFHCWAGY 12:48
PROVIDERS: ATTEND Obstetrics & Gynecology
DX: Z12.4 Encounter for screening for malignant neoplasm of cervix (principal); Z77.9 Other contact with and (suspected) exposures hazardous to health

== ENCOUNTER → 2025-08-24 | Outpatient (CLI) | payer OTHER | LOC: M WHC 09:44 | PROVIDERS: ATTEND Family Medicine | DX: Z12.31 Encounter for screening mammogram for malignant neoplasm of breast (principal); Z80.3 Family history of malignant neoplasm of breast; R92.333 Mammographic heterogeneous density, bilateral breasts; R92.8 Other abnormal and inconclusive findings on diagnostic imaging of breast ==

== ENCOUNTER → 2025-08-24 | Outpatient (CLI) | payer OTHER | LOC: M PLAIMG 09:47 | PROVIDERS: ATTEND Family Medicine | DX: Z12.31 Encounter for screening mammogram for malignant neoplasm of breast (principal); M54.12 Radiculopathy, cervical region; Z80.3 Family history of malignant neoplasm of breast; R92.333 Mammographic heterogeneous density, bilateral breasts; R92.8 Other abnormal and inconclusive findings on diagnostic imaging of breast ==

== ENCOUNTER → 2025-09-16 | Outpatient (CLI) | payer OTHER | LOC: M WHC 07:38 | PROVIDERS: ATTEND Family Medicine | DX: R92.8 Other abnormal and inconclusive findings on diagnostic imaging of breast (principal) ==